=== PATIENT | female | born 1945 | race Caucasian/White ===

== ENCOUNTER 2017-10-02 22:54 | Emergency (ER) | payer OTHER ==
[2017-10-02] MEDS ORDERED: LIDOCAINE 1% MPF 5 ML VIAL ONE (23:28)
--- NOTE | 2017-10-02 23:34 | ER ---
Nurse's Notes [facility] Name: Rebecca Erwin Age: 72 yrs Sex: Female : 1945 Arrival Date: 10/02/2017 Time: 22:56 Bed 5 Private MD: Diagnosis: Lacerations above right eye and chin. S/P Fall Presentation: 10/02 22:58 Presenting complaint: Patient states: that she tripped over the chair in her room and fc hurt her chin and right eye. Denies any LOC. Has small cut to chin and cut to right eyelid. Transition of care: patient was not received from another setting of care. Onset of symptoms was October 02, 2017 at 22:00. Care prior to arrival: Bleeding of injury controlled. 22:58 Method Of Arrival: Wheelchair fc 22:58 Acuity: DRE 3 fc 23:15 Mechanism of Injury: Fall from standing position. Trauma event details: Injury occurred ak1 in the [facility]. Triage Assessment: 23:06 General: Appears in no apparent distress. Behavior is calm, cooperative. Pain: Denies ak1 pain. EENT: Eyes pt with lac to right eye lid with no bleeding noted. pt stated she tripped and fell hitting her foot board. pt denies LOC, pt stated she has "bad knees and falls a lot" . 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 Gait is steady, Speech is normal, Facial symmetry appears normal, Pupils are PERRLA. Cardiovascular: No deficits noted. Respiratory: No deficits noted. GI: No signs and/or symptoms were reported involving the gastrointestinal system. : No signs and/or symptoms were reported regarding the genitourinary system. Derm: Wound noted right eye, under chin. Musculoskeletal: No signs and/or symptoms reported regarding the musculoskeletal system. Trauma Activation: Not Applicable Physician: ED Physician; Name: ; Notified At: ; Arrived At: Physician: General Surgeon; Name: ; Notified At: ; Arrived At: Physician: Radiology; Name: ; Notified At: ; Arrived At: Physician: Respiratory; Name: ; Notified At: ; Arrived At: Physician: Lab; Name: ; Notified At: ; Arrived At: Historical: - Allergies: 23:04 No Known Allergies; fc - Home Meds: 23:04 metoprolol tartrate 50 mg Oral tab 1 tab 2 times per day [Active]; losartan 100 mg oral fc tab 1 tab once daily [Active]; aspirin 81 mg Oral TbEC 1 tab once daily [Active]; multivitamin oral tab daily [Active]; calcium 600 mg with vit D3 twice a day [Active]; krill oil 500 mg oral cap daily [Active]; biotin oral oral daily [Active]; - PMHx: 23:04 Hypertension; fc - Immunization history:: Last tetanus immunization: up to date. - Social history:: Smoking status: Patient/guardian denies using tobacco. Screenin:14 Abuse screen: Denies threats or abuse. Denies injuries from another. Nutritional ak1 screening: No deficits noted. Tuberculosis screening: No symptoms or risk factors identified. Fall Risk None identified. Primary Survey: 23:15 A: Airway: patent. Breathing/Chest: Respiratory pattern: regular, Respiratory effort: ak1 unlabored. Circulation: Skin color: pink. Disability Alert. Reassessment Airway Airway Breathing/Chest Respiratory pattern Regular Respiratory effort Unlabored Circulation Color [place] Temperature Warm Disability Alert. Assessment: 23:14 Reassessment: Patient appears in no apparent distress at this time. No changes from ak1 previously documented assessment. see triage assessment. Vital Signs: 23:00 BP 152 / 99; Pulse 84; Resp 18; Temp 98.8(TE); Pulse Ox 100% on R/A; Weight 71.67 kg (R); Height 5 ft. 3 in. (160.02 cm) (R); Pain 4/10; 23:40 BP 142 / 78; Pulse 78; Resp 18; Pulse Ox 100% on R/A; Pain 0/10; ea 23:00 Body Mass Index 27.99 (71.67 kg, 160.02 cm) Josue Coma Score: 23:16 Eye Response: spontaneous(4). Verbal Response: oriented(5). Motor Response: obeys ak1 commands(6). Total: 15. Trauma Score (Adult): 23:16 Eye Response: spontaneous(1); Verbal Response: oriented(1); Motor Response: obeys ak1 commands(2); Systolic BP: > 89 mm Hg(4); Respiratory Rate: 10 to 29 per min(4); Josue Score: 15; Trauma Score: 12 ED Course: 22:56 Patient arrived in ED. ds1 22:58 Arm band placed on Patient placed in an exam room, on a stretcher. fc 23:00 Triage completed. fc 23:04 Shahid Márquez MD is Attending Physician. pkl 23:06 Natali Harry, RN is Primary Nurse. ak1 23:14 Assist provider with laceration repair on head using sutures. Set up tray. Performed by ak1 Shahid Márquez MD Patient tolerated well. 23:16 Patient has correct armband on for positive identification. Bed in low position. Call ak1 light in reach. Side rails up X 1. Adult w/ patient. Pulse ox on. NIBP on. 23:16 Patient maintains SpO2 saturation greater than 95% on room air. ak1 23:17 Thermoregulation: warm blanket given to patient. ak1 23:39 Patient did not have IV access during this emergency room visit. ea Administered Medications: 23:13 Drug: Lidocaine (1 %) 1 vials Volume: 5 ml; Route: Infiltration; ak1 Intake: 23:16 PO: 0ml; Total: 0ml. ak1 Outcome: 23:33 Discharge ordered by . pkl 23:38 Discharged to home ambulatory, with family. ea 23:38 Condition: improved 23:38 Discharge instructions given to patient, Instructed on discharge instructions, follow up and referral plans. Demonstrated understanding of instructions, follow-up care. 23:38 Patient's length of stay was not longer than 2 hours. 23:41 Patient left the ED. ea Signatures: Shahid Márquez MD MD pkl Chretien, Felicia, RN RN [facility] Natali Harry, KARON RN ak Miryam Colon RN RN ea
--- NOTE | 2017-10-02 23:34 | EDPHYS ---
Physician Documentation [facility] Name: Rebecca Erwin Age: 72 yrs Sex: Female : 1945 Arrival Date: 10/02/2017 Time: 22:56 Bed 5 Private MD: ED Physician Shahid Márquez HPI: 10/02 23:20 This 72 yrs old Female presents to ER via Wheelchair with complaints of Fall pkl Injury. 23:20 Details of fall: The patient fell from an upright position, Patient tripped over a pkl chair and fell and hit her chin and above her right eye. Onset: The symptoms/episode began/occurred just prior to arrival. Associated injuries: The patient sustained injury to the head, laceration, 1 cm(s), above right eye and 0.5 cm on chin. Historical: - Allergies: 23:04 No Known Allergies; fc - Home Meds: 23:04 metoprolol tartrate 50 mg Oral tab 1 tab 2 times per day [Active]; losartan 100 mg oral fc tab 1 tab once daily [Active]; aspirin 81 mg Oral TbEC 1 tab once daily [Active]; multivitamin oral tab daily [Active]; calcium 600 mg with vit D3 twice a day [Active]; krill oil 500 mg oral cap daily [Active]; biotin oral oral daily [Active]; - PMHx: 23:04 Hypertension; fc - Immunization history:: Last tetanus immunization: up to date. - Social history:: Smoking status: Patient/guardian denies using tobacco. ROS: 23:20 Eyes: Negative for injury, pain, redness, and discharge, ENT: Negative for injury, pkl pain, and discharge, Neck: Negative for injury, pain, and swelling, Cardiovascular: Negative for chest pain, palpitations, and edema, Respiratory: Negative for shortness of breath, cough, wheezing, and pleuritic chest pain, Abdomen/GI: Negative for abdominal pain, nausea, vomiting, diarrhea, and constipation, Back: Negative for injury and pain, : Negative for injury, bleeding, discharge, and swelling, MS/Extremity: Negative for injury and deformity, Neuro: Negative for headache, weakness, numbness, tingling, and seizure. 23:20 Skin: Positive for laceration(s), of the 1 cm above right eye and 0.5 cm on chin. Exam: 23:20 Eyes: Pupils equal round and reactive to light, extra-ocular motions intact. Lids and pkl lashes normal. Conjunctiva and sclera are non-icteric and not injected. Cornea within normal limits. Periorbital areas with no swelling, redness, or edema. ENT: Nares patent. No nasal discharge, no septal abnormalities noted. Tympanic membranes are normal and external auditory canals are clear. Oropharynx with no redness, swelling, or masses, exudates, or evidence of obstruction, uvula midline. Mucous membranes moist. Neck: Trachea midline, no thyromegaly or masses palpated, and no cervical lymphadenopathy. Supple, full range of motion without nuchal rigidity, or vertebral point tenderness. No Meningismus. Chest/axilla: Normal chest wall appearance and motion. Nontender with no deformity. No lesions are appreciated. Cardiovascular: Regular rate and rhythm with a normal S1 and S2. No gallops, murmurs, or rubs. Normal PMI, no JVD. No pulse deficits. Respiratory: Lungs have equal breath sounds bilaterally, clear to auscultation and percussion. No rales, rhonchi or wheezes noted. No increased work of breathing, no retractions or nasal flaring. Abdomen/GI: Soft, non-tender, with normal bowel sounds. No distension or tympany. No guarding or rebound. No evidence of tenderness throughout. Back: No spinal tenderness. No costovertebral tenderness. Full range of motion. MS/ Extremity: Pulses equal, no cyanosis. Neurovascular intact. Full, normal range of motion. Neuro: Awake and alert, GCS 15, oriented to person, place, time, and situation. Cranial nerves II-XII grossly intact. Motor strength 5/5 in all extremities. Sensory grossly intact. Cerebellar exam normal. Normal gait. 23:20 Head/face: Noted is a laceration(s), of the 1 cm above right eye and 0.5 cm on chin. Vital Signs: 23:00 BP 152 / 99; Pulse 84; Resp 18; Temp 98.8(TE); Pulse Ox 100% on R/A; Weight 71.67 kg fc (R); Height 5 ft. 3 in. (160.02 cm) (R); Pain 4/10; 23:40 BP 142 / 78; Pulse 78; Resp 18; Pulse Ox 100% on R/A; Pain 0/10; ea 23:00 Body Mass Index 27.99 (71.67 kg, 160.02 cm) Josue Coma Score: 23:16 Eye Response: spontaneous(4). Verbal Response: oriented(5). Motor Response: obeys ak1 commands(6). Total: 15. Trauma Score (Adult): 23:16 Eye Response: spontaneous(1); Verbal Response: oriented(1); Motor Response: obeys ak1 commands(2); Systolic BP: > 89 mm Hg(4); Respiratory Rate: 10 to 29 per min(4); Josue Score: 15; Trauma Score: 12 Laceration: 23:20 Wound Repair of 1.5cm ( 0.6in ) subcutaneous laceration to Above right eye and chin. pkl Minimal bleeding noted.. Distal neuro/vascular/tendon intact. Anesthesia: Local anesthetic administered with 1 mls of 1% lidocaine. Wound prep: Extensive cleansing by me. Skin closed with 3 5-0 Prolene using simple sutures and sterile technique. Dressed with Neosporin. Patient tolerated well. MDM: 23:04 Patient medically screened. pkl 23:20 Data reviewed: vital signs, nurses notes. pkl 10/02 23:13 Order name: Gloves, Sterile; Complete Time: 23:17 ak1 10/02 23:13 Order name: Setup Suture Tray; Complete Time: 23:13 ak1 Administered Medications: 23:13 Drug: Lidocaine (1 %) 1 vials Volume: 5 ml; Route: Infiltration; ak Disposition: 10/02/17 23:33 Discharged to Home. Impression: Lacerations above right eye and chin. S/P Fall. - Condition is Stable. - Medication Reconciliation Form, Thank You Letter, Antibiotic Education, Prescription Opioid Use form. - Follow up: Private Physician; When: 5 - 6 days; Reason: Wound Recheck, Staple/Suture removal, Re-evaluation by your physician. - Problem is new. - Symptoms have improved. Signatures: Shahid Márquez MD MD pkMira Verdin RN Natali Caban RN RN akMiryam Jane RN RN ea
== END 2017-10-02 23:41 | disposition home or self-care (01) ==
LOC: ER 22:54
PROC: 08QNXZZ Repair Right Upper Eyelid, External Approach (ICD-10-PCS; principal; 2017-10-02)
DX: S01.111A Laceration without foreign body of right eyelid and periocular area, initial encounter (principal); W01.190A Fall on same level from slipping, tripping and stumbling with subsequent striking against furniture, initial encounter; Y93.9 Activity, unspecified; Y92.009 Unspecified place in unspecified non-institutional (private) residence as the place of occurrence of the external cause; Z79.82 Long term (current) use of aspirin; I10 Essential (primary) hypertension
CPT/HCPCS: 99284